=== PATIENT | male | born 1980 | race Asian ===

== ENCOUNTER 2017-01-31 06:49 | Emergency (ER) | payer SELFPAY ==
[2017-01-31 07:06] VITALS: BP 132/90
--- NOTE | 2017-01-31 08:38 | EDM.PDOC ---
ED HPI GENERAL MEDICAL PROBLEM - General Chief Complaint: Respiratory Problem Stated Complaint: COUGH Time Seen by Provider: 01/31/17 07:06 Source of Information: Reports: Patient, RN Notes Reviewed History Limitations: Reports: No Limitations - History of Present Illness INITIAL COMMENTS - FREE TEXT/NARRATIVE: The patient states that he has had a dry cough that began Thursday, 2016. He has not had a fever. He reports slight shortness of breath. He states that he has been taking yvws-kik-[id number] juice, without relief, therefore on 01/28/2017 he started taking ccaw-[id number] DayQuil, which did not help. Today he took some Claritin, which also did not help. No prior similar symptoms. The patient does not have a PCP. Treatments JACQUARD LOOM HEDDLES TIER: Reports: Other (see below) Other Treatments JACQUARD LOOM HEDDLES TIER: claritin Chest Pain Score (Numeric/FACES): 7 - Related Data Allergies Allergy/AdvReac Type Severity Reaction Status Date / Time No Known Allergies Allergy Verified 01/31/17 07:00 Home Meds: Home Meds Dayquil. 01/31/17 [History] Loratadine [Claritin] 10 mg PO DAILY 01/31/17 [History] Past Medical History - Past Health History Medical/Surgical History: Denies Medical/Surgical History Social & Family History - Tobacco Use Smoking Status *Q: Never Smoker Second Hand Smoke Exposure: No - Alcohol Use Alcohol Use History: No - Recreational Drug Use Recreational Drug Use: No - Living Situation & Occupation Living situation: Reports: Single, Other (Friend) Occupation: Employed ([employer]) ED ROS GENERAL - Review of Systems Review Of Systems: See Below Constitutional: Reports: No Symptoms. Denies: Fever HEENT: Reports: No Symptoms Respiratory: Reports: Cough. Denies: Sputum Cardiovascular: Reports: No Symptoms Endocrine: Reports: No Symptoms GI/Abdominal: Reports: No Symptoms : Reports: No Symptoms Musculoskeletal: Reports: No Symptoms Skin: Reports: No Symptoms Neurological: Reports: No Symptoms Psychiatric: Reports: No Symptoms Hematologic/Lymphatic: Reports: No Symptoms Immunologic: Reports: No Symptoms ED EXAM, GENERAL - Physical Exam Exam: See Below Exam Limited By: No Limitations General Appearance: Alert, WD/WN, No Apparent Distress Eye Exam: Bilateral Eye: Normal Inspection Ears: Normal External Exam, Hearing Grossly Normal Nose: Normal Inspection, No Blood Throat/Mouth: Normal Inspection, Normal Lips, Normal Voice, No Airway Compromise Head: Atraumatic, Normocephalic Neck: Normal Inspection, Full Range of Motion Respiratory/Chest: No Respiratory Distress, Lungs Clear, Normal Breath Sounds, No Accessory Muscle Use Cardiovascular: Normal Peripheral Pulses, Regular Rate, Rhythm, No Gallop, No JVD, No Murmur, No Rub Peripheral Pulses: 4+: Radial (L), Radial (R) GI/Abdominal: Normal Bowel Sounds, Soft, Non-Tender, No Organomegaly, No Distention, No Abnormal Bruit, No Mass (Male) Exam: Deferred Rectal (Males) Exam: Deferred Back Exam: Normal Inspection, Full Range of Motion, NT Extremities: Normal Inspection, Normal Range of Motion, No Pedal Edema, Normal Capillary Refill Neurological: Alert, Oriented, Normal Cognition, No Motor/Sensory Deficits Psychiatric: Normal Affect Skin Exam: Warm, Dry, Intact, Normal Color, No Rash Lymphatic: No Adenopathy Course - Vital Signs Last Recorded V/S: Last Vital Signs Temp 36.8 C 01/31/17 07:01 Pulse 97 01/31/17 07:01 Resp 20 01/31/17 07:01 BP 132/90 01/31/17 07:01 Pulse Ox 96 01/31/17 07:01 - Orders/Labs/Meds Orders: Active Orders 24 hr Category Date Time Status Chest 2V [CR] Stat Exams 01/31/17 07:23 Taken Labs: Laboratory Tests 01/31/17 01/31/17 Range/Units 07:37 07:37 WBC 10.20 H (4.23-9.07) K/mm3 RBC 4.61 L (4.63-6.08) M/mm3 Hgb 14.0 (13.7-17.5) gm/L Hct 40.8 (40.1-51.0) % MCV 88.5 (79.0-92.2) fl MCH 30.4 (25.7-32.2) pg MCHC 34.3 (32.2-35.5) g/dl RDW Std Deviation 37.7 (35.1-43.9) fL Plt Count 381 H (163-337) K/mm3 MPV 8.6 L (9.4-12.3) fl Neutrophils % (Manual) 81 H (40-60) % Band Neutrophils % 1 (0-10) % Lymphocytes % (Manual) 9 L (20-40) % Atypical Lymphs % 0 % Monocytes % (Manual) 8 (2-10) % Eosinophils % (Manual) 1 (0.8-7.0) % Basophils % (Manual) 0 L (0.2-1.2) Platelet Estimate Adequate RBC Morph Comment Normal Sodium 138 (136-145) mEq/L Potassium 3.4 L (3.5-5.1) mEq/L Chloride 101 (98-107) mEq/L Carbon Dioxide 27 (21-32) mEq/L Anion Gap 13.4 (5-15) BUN 5 L (7-18) mg/dL Creatinine 0.9 (0.7-1.3) mg/dL Est Cr Clr Drug Dosing 94.64 mL/min Estimated GFR (MDRD) > 60 (>60) mL/min BUN/Creatinine Ratio 5.6 L (14-18) Glucose 111 H (74-106) mg/dL Calcium 8.4 L (8.5-10.1) mg/dL Total Bilirubin 0.7 (0.2-1.0) mg/dL AST 11 L (15-37) U/L ALT 20 (16-63) U/L Alkaline Phosphatase 75 (46-116) U/L Total Protein 7.1 (6.4-8.2) g/dl Albumin 3.3 L (3.4-5.0) g/dl Globulin 3.8 gm/dL Albumin/Globulin Ratio 0.9 L (1-2) - Radiology Interpretation Free Text/Narrative:: Two-view chest radiograph appears to be grossly normal. Cardiac silhouette is within normal limits. No pulmonary vascular congestion. No pleural effusions. No focal infiltrate. No pneumothorax. Formal read per the Radiologist pending. - Re-Assessments/Exams Free Text/Narrative Re-Assessment/Exam: 01/31/17 08:35 Test results discussed with the patient. Today's workup is unremarkable. The patient is likely suffering from a viral URI with cough. I explained that there is no genuine treatment that will help, that it will have to run its course and will resolve on its own. Departure - Departure Time of Disposition: 08:35 Disposition: Home, Self-Care 01 Condition: Good Clinical Impression: Viral URI with cough - Discharge Information Instructions: Upper Respiratory Infection, Adult, [id number] Referrals: PCP,None [Primary Care Provider] - Katherin Lan PA-C [Physician [employer] Heading Supervisor] - Forms: ED Department Discharge Additional Instructions: You were seen in the emergency room for a dry cough for the past 6 days. Workup in the ER included blood work and a chest x-ray. Your tests were unremarkable. You do not have bronchitis. You do not have pneumonia. Your cough is MOST LIKELY due to a viral URI. Unfortunately, there are no treatments for a viral URI - it will simply have to run its course. We do not recommend you take any [id number] cough or cold medicines, for, as you have discovered, they do not help with your symptoms. Follow-up with Katherin Lan in the clinic as needed. If any other problems, please do not hesitate to return to the ER. - My Orders Last 24 Hours: My Active Orders 01/31/17 07:23 Chest 2V [CR] Stat - Assessment/Plan Last 24 Hours: My Active Orders 01/31/17 07:23 Chest 2V [CR] Stat
--- NOTE | 2017-01-31 11:05 | CR ---
Chest: 2 views of the chest were obtained. Comparison: No previous study. Mild increased density is identified within the superior segment of the left lower lung on the lateral view. Findings are suspicious for small area of pneumonia. Lungs otherwise are clear. Heart size and mediastinum are normal. Minimal scoliosis is noted within the spine. Impression: 1. Slight density as described above suspicious for small area of pneumonia. Diagnostic code #3
== END 2017-01-31 09:05 | disposition home or self-care (01) ==
LOC: JD.ED 06:49
DX: J06.9 Acute upper respiratory infection, unspecified (principal); Z79.899 Other long term (current) drug therapy
CPT/HCPCS: 36415; 71020; 71020-26; 80053; 85025; 99283; 99284